=== PATIENT | male | born 1985 | race Caucasian/White ===

== ENCOUNTER 2020-05-15 14:25 | Inpatient (IN) | payer SELFPAY ==
--- NOTE | ~2020-05-15 | XR_ITS ---
XR chest 2V DATE: 05/15/2020 14:50 INDICATION: Dizziness. Weakness. TECHNIQUE: AP and lateral views COMPARISON: None FINDINGS: Pedicle screws and rods are noted from posterior fusion of the upper thoracic spine from T1 to T6. Normal heart size. No hilar or mediastinal enlargement. No pulmonary infiltrate or consolidation, ple ural effusion or pulmonary vascular congestion or pneumothorax. IMPRESSION: No active cardiopulmonary disease Reviewed, dictated and finalized at location A.
--- NOTE | ~2020-05-15 | US_ITS ---
US venous doppler [facility] DATE: 05/16/2020 10:13 INDICATION: Swelling of the lower extremities TECHNIQUE: Routine contrast imaging and Doppler analysis of the veins of the lower extremities COMPARISON: None FINDINGS: The greater saphenous veins are patent. There is spontaneous and phasic flow and normal aug mentation and color flow signal and normal compression of the veins of both legs. IMPRESSION: No evidence of deep venous thrombosis of the lower extremities Reviewed, dictated and finalized at Location [facility]. Reviewed, dictated and finalized at location A.
--- NOTE | 2020-05-15 14:34 | ECG_ITS ---
Measurements Intervals [place] Rate: 87 P: NE: 0 QRS: 23 QRSD: 115 T: -18 QT: 321 QTc: 388 Interpretive Statements SINUS OR ECTOPIC ATRIAL RHYTHM INTRAVENTRICULAR CONDUCTION DELAY BORDERLINE ST-T WAVE ABNORMALITY- INF/LAT LEADS BASELINE ARTIFACT- I, II, AVR, AVL, AVF, V4-V6 BORDERLINE ECG Electronically Signed On 05-15-2020 20:16:47 CDT by David Haro D.O.
[2020-05-15 15:03] LABS: Basophils Percent Auto 0.3 % (0.2-1.2); Eosinophils Absolute Auto 0.1 K/mm3 (0-0.3); Eosinophils Percent Auto 1.1 % (0-4.4); Hematocrit 36.2 % (42.0-52.0); Hemoglobin 11.9 g/dL (14.0-18.0); Immature Granulocyte Absolute 0.05 K/mm3 (0.00-0.031); Immature Granulocyte Percent A 0.4 % (0-0.5); Lymphocytes Absolute Auto 1.02 K/mm3 (0.9-3.2); Lymphocytes Percent Auto 8.8 % (18.3-44.2); Mean Corpuscular HGB Conc 32.9 g/dl (32-36); Mean Corpuscular Volume 82.3 fl (80-100); Mean Platelet Volume 9.1 fl (7.4-10.4); Monocytes Absolute Auto 0.8 K/mm3 (0.1-0.6); Monocytes Percent Auto 6.6 % (2.6-8.5); Neutrophils Absolute Auto 9.6 K/mm3 (1.3-6.7); Neutrophils Percent Auto 82.8 % (45.5-73.1); Platelet Count Result 365 k/mm3 (150-375); Red Cell Distribution Width 14.4 % (11.5-14.5); White Blood Count 11.6 K/mm3 (4.5-10.0)
[2020-05-15 15:16] LABS: Alanine Aminotransferase 9 U/L (4-50); Alkaline Phosphatase 120 U/L (38-126); Anion Gap 14.3 mmol/L (7-16); Aspartate Amino Transferase 22 U/L (17-59); Bilirubin,Total 0.4 mg/dL (0.2-1.3); Blood Urea Nitrogen 7 mg/dL (9-20); Calcium 8.9 mg/dL (8.4-10.2); Carbon Dioxide 25 mmol/L (22-30); Chloride 96 mmol/L (98-107); Estimated CRCL calculation 157 ml/min; Estimated Glomerular Filt Rate > 60; Glucose 124 mg/dL (75-110); Potassium 3.3 mmol/L (3.4-5.0); Sodium 132 mmol/L (137-145)
[2020-05-15 15:20] LABS: Add Urine Microscopic? YES; Appearance Urine Cloudy (Clear); Bacteria Urine Trace /hpf; Bilirubin Urine Negative (Negative); Blood Urine 1+ (Negative); Color Urine Straw (Yellow); Glucose Urine UA Negative (Negative); Ketones Urine Negative (Negative); Leukocyte Esterase Ur 3+ LEU/UL (Negative); Mucus Urine Rare /lpf; Nitrate Urine Positive (Negative); Protein Urine 1+ mg/dL (Negative); Urobilinogen Urine Negative mg/dL (<2.0); WBC Urine >75 /hpf
[2020-05-15 15:22] LABS: Specific Grav Ur 1.003 (1.001-1.035)
[2020-05-15 15:35] LABS: Amphetamine Screen Urine Positive (Negative); Barbiturate Screen Urine Negative (Negative); Benzodiazepines Screen Urine Positive (Negative); Cannabinoid Screen Urine Positive (Negative); Cocaine Screen Urine Positive (Negative); Methadone Screen Urine Positive (Negative); Opiate Screen Urine Negative (Negative); Phencyclidine Screen Urine Negative (Negative)
[2020-05-15 15:48] VITALS: BP 130/85; PULSE 93; RESP 22; O2SAT 98
[2020-05-15 16:41] VITALS: BP 144/95; PULSE 57; RESP 19; O2SAT 99
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
[2020-05-15 17:47] VITALS: BP 152/92; PULSE 68; RESP 17; TEMP 36.6; O2SAT 98
[2020-05-15] MEDS: LACTATED RINGERS 1,000 ML 999 ML IV CONT (17:56)
[2020-05-15 18:00] LABS: Creatine Kinase 308 U/L (55-170)
--- NOTE | 2020-05-15 18:55 | ADMGEN ---
This patient, Karthikeyan Ortiz, was admitted to Medical Room 347-. Patient/family oriented to hospital policies and general routines including ID bracelet, bed and alarms, visiting hours, pain management, procedures, bathroom and other care routines, personal items, smoking policy, room service/diet, and visiting hours. Valuables list has been completed. Information on how to activate the Rapid Response Team has been discussed. Patient/Family are encouraged to report perceived risks to care and to ask questions if they do not understand what they are told or what they should do.
[2020-05-15 19:15] VITALS: BP 95/69; PULSE 92; RESP 18; TEMP 36.3; O2SAT 99; BMI 21.2
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
[2020-05-15] MEDS: LACTATED RINGERS 1,000 ML 200 ML IV CONT (21:48)
[2020-05-15 23:47] LABS: Acetaminophen < 10 ug/mL (10-30); Creatine Kinase 419 U/L (55-170); Magnesium 2.2 mg/dL (1.6-2.3)
[2020-05-15 23:48] LABS: Anion Gap 9.3 mmol/L (7-16); Blood Urea Nitrogen 6 mg/dL (9-20); Calcium 8.5 mg/dL (8.4-10.2); Carbon Dioxide 28 mmol/L (22-30); Chloride 100 mmol/L (98-107); Estimated CRCL calculation 178 ml/min; Estimated Glomerular Filt Rate > 60; Glucose 108 mg/dL (75-110); Potassium 3.3 mmol/L (3.4-5.0); Sodium 134 mmol/L (137-145)
[2020-05-16] MEDS: POTASSIUM CHLORIDE 20 MEQ TABLET PO (01:29)
[2020-05-16] MEDS: ACETAMINOPHEN 325 MG TABLET 650 MG PO (01:32)
[2020-05-16 06:00] VITALS: BP 100/64; PULSE 69; RESP 14; TEMP 36.6; O2SAT 100
[2020-05-16 06:41] LABS: Basophils Percent Auto 0.5 % (0.2-1.2); Eosinophils Absolute Auto 0.4 K/mm3 (0-0.3); Eosinophils Percent Auto 6.2 % (0-4.4); Hematocrit 31.9 % (42.0-52.0); Hemoglobin 10.4 g/dL (14.0-18.0); Immature Granulocyte Absolute 0.02 K/mm3 (0.00-0.031); Immature Granulocyte Percent A 0.3 % (0-0.5); Lymphocytes Percent Auto 36.6 % (18.3-44.2); Mean Corpuscular HGB Conc 32.6 g/dl (32-36); Mean Corpuscular Hemoglobin 26.7 pg (26-34); Mean Platelet Volume 9.1 fl (7.4-10.4); Monocytes Absolute Auto 0.6 K/mm3 (0.1-0.6); Monocytes Percent Auto 9.1 % (2.6-8.5); Neutrophils Percent Auto 47.3 % (45.5-73.1); Platelet Count Result 291 k/mm3 (150-375); Red Blood Count 3.89 M/mm3 (4.6-6.20); Red Cell Distribution Width 14.7 % (11.5-14.5); White Blood Count 6.3 K/mm3 (4.5-10.0)
[2020-05-16 07:02] LABS: Anion Gap 9.5 mmol/L (7-16); Blood Urea Nitrogen 5 mg/dL (9-20); Calcium 8.5 mg/dL (8.4-10.2); Carbon Dioxide 25 mmol/L (22-30); Chloride 102 mmol/L (98-107); Estimated CRCL calculation 178 ml/min; Estimated Glomerular Filt Rate > 60; Glucose 82 mg/dL (75-110); Potassium 3.5 mmol/L (3.4-5.0); Sodium 133 mmol/L (137-145)
[2020-05-16] MEDS: LACTATED RINGERS 1,000 ML 75 ML IV CONT (08:52)
[2020-05-16 08:55] VITALS: RESP 16; O2SAT 100
[2020-05-16] MEDS: ENOXAPARIN 40 MG/0.4 ML SYRINGE SUB-Q (08:55)
[2020-05-16] MEDS: GABAPENTIN 300 MG CAPSULE PO (08:55)
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
== END 2020-05-16 13:10 | disposition home or self-care (01) | DRG 422 ==
LOC: ANHED 17:14 → ANH3MED 18:00
PROVIDERS: Emergency Medicine Emergency Medical Services; Physician Assistant; Admitting Provider Internal Medicine; Emergency Provider Emergency Medicine; Visit Provider Family Medicine
DX: E86.0 Dehydration (principal); L89.154 Pressure ulcer of sacral region, stage 4; G82.21 Paraplegia, complete; G89.21 Chronic pain due to trauma; T67.5XXA Heat exhaustion, unspecified, initial encounter; R82.71 Bacteriuria; R82.81 Pyuria; Z96.0 Presence of urogenital implants; F19.10 Other psychoactive substance abuse, uncomplicated; D72.829 Elevated white blood cell count, unspecified; F17.210 Nicotine dependence, cigarettes, uncomplicated; Z79.891 Long term (current) use of opiate analgesic; Z59.0 Homelessness
CPT/HCPCS: 36415; 71046; 80048; 80053; 80307; 81001; 82550; 83735; 85025; 87077; 87086; 87088; 87186; 93005; 93970; 99285; A9270; J0696; J1650; J7120